=== PATIENT | male | born 2000 | race Caucasian/White ===

== ENCOUNTER 2021-08-08 09:35 | Emergency (ER) | payer BC ==
[~2021-08-08] VITALS: Ht 182.9 cm; Wt 81.8 kg
[2021-08-08 10:01] VITALS: TEMP 97.4
[2021-08-08] MEDS ORDERED: NORCO 325 MG-51 TAB PO ×5 (11:20→12:40)
[2021-08-08 11:28] VITALS: BP 133/75; PULSE 88
== END 2021-08-08 11:29 | disposition home or self-care (01) ==
LOC: COL.ER 09:35
DX: S93.401A Sprain of unspecified ligament of right ankle, initial encounter (principal); X50.1XXA Overexertion from prolonged static or awkward postures, initial encounter; Y93.89 Activity, other specified
CPT/HCPCS: 31868; L4386